=== PATIENT | female | born 1980 | race Hispanic/Latino ===

== ENCOUNTER 2017-06-21 17:12 | Emergency (ER) | payer MEDICARE ==
[2017-06-21 17:28] VITALS: BP 131/77
[2017-06-21 18:09] LABS: Basophils % (Auto) 0.2 % (0.0-1.8); Eosinophils # (Auto) 0.3 K/mm3 (0.0-0.4); Eosinophils % (Auto) 2.3 % (0.0-4.3); Hematocrit 45.5 % (30.3-42.9); Lymphocytes # (Auto) 3.6 K/mm3 (1.2-5.4); Mean Corpuscular HGB Conc 33 % (30-34); Mean Corpuscular Hemoglobin 29 pg (28-32); Mean Corpuscular Volume 87 fl (79-97); Monocytes # (Auto) 1.4 K/mm3 (0.0-0.8); Monocytes % (Auto) 10.5 % (0.0-7.3); Platelet Count 206 K/mm3 (140-440); Red Blood Count 5.23 M/mm3 (3.65-5.03); Red Cell Distribution Width 14.4 % (13.2-15.2)
[2017-06-21 18:19] LABS: BUN/Creatinine Ratio 8; Blood Urea Nitrogen 3 mg/dL (7-17); Hemolysis Index 33
[2017-06-21 18:38] LABS: Benzodiazepines Screen,Urine TNR; Cannabinoid Screen,Urine TNR; Cocaine Screen,Urine TNR; Methadone Screen,Urine TNR; Opiate Screen,Urine TNR
[2017-06-21 18:40] LABS: Amphetamine Screen,Urine TNR
--- NOTE | 2017-06-21 20:21 | Emergency Department Report ---
ED General Adult HPI - General Chief complaint: Psych Stated complaint: AMS Time Seen by Provider: 06/21/17 19:42 Source: patient Mode of arrival: Ambulatory Limitations: No Limitations - History of Present Illness Initial comments: Patient presents to emergency department with her mother and brother for manic behavior. They state that the patient has not had more distant sounds asleep over the last week. They're also concerned because the patient is not taking her medications. The patient has a history of bipolar and had a recent admission to [facility] 2 weeks ago. Said that the patient is very hyperactive at the moment which is limited to her to do dangerous pain such as when out in the middle of the street. 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, an financial reporting accountant, and some other field which she will not repeat -: Gradual, week(s) Radiation: non-radiation Severity scale (0 -10): 0 Improves with: none Worsens with: none Associated Symptoms: denies other symptoms Treatments Prior to Arrival: none - Related Data Home Medications Medication Instructions Recorded Confirmed Last Taken Atorvastatin 40 mg PO DAILY 06/21/17 06/21/17 Unknown Pantoprazole [Protonix] 40 mg PO DAILY 06/21/17 06/21/17 Unknown Topiramate [Topamax TAB] 50 mg PO QHS 06/21/17 06/21/17 Unknown hydrOXYzine 50 mg PO TID PRN 06/21/17 06/21/17 Unknown Allergies Allergy/AdvReac Type Severity Reaction Status Date / Time divalproex sodium Allergy Unknown Verified 06/21/17 17:28 [From Depakote] hydroxyzine [From Vistaril] Allergy Unknown Verified 06/21/17 17:28 risperidone Allergy Unknown Verified 06/21/17 17:35 sertraline [From Zoloft] Allergy Unknown Verified 06/21/17 17:28 ED Review of Systems ROS: Stated complaint: AMS Other details as noted in HPI Comment: All other systems reviewed and negative Constitutional: denies: chills, fever Eyes: denies: eye pain, eye discharge, vision change ENT: denies: ear pain, throat pain Respiratory: denies: cough, shortness of breath, wheezing Cardiovascular: denies: chest pain, palpitations Endocrine: no symptoms reported Gastrointestinal: denies: abdominal pain, nausea, diarrhea Genitourinary: denies: urgency, dysuria, discharge Musculoskeletal: denies: back pain, joint swelling, arthralgia Skin: denies: rash, lesions Neurological: denies: headache, weakness, paresthesias Psychiatric: anxiety, depression, other (manic) Hematological/Lymphatic: denies: easy bleeding, easy bruising ED Past Medical Hx - Past Medical History Hx GERD: Yes Hx Psychiatric Treatment: Yes (bipolar,schizophrenia) Additional medical history: elevated cholesterol - Surgical History Hx Cholecystectomy: Yes - Social History Smoking Status: Current Every Day Smoker Substance Use Type: None - Medications Home Medications: Home Medications Medication Instructions Recorded Confirmed Last Taken Type Atorvastatin 40 mg PO DAILY 06/21/17 06/21/17 Unknown History Pantoprazole [Protonix] 40 mg PO DAILY 06/21/17 06/21/17 Unknown History Topiramate [Topamax TAB] 50 mg PO QHS 06/21/17 06/21/17 Unknown History hydrOXYzine 50 mg PO TID PRN 06/21/17 06/21/17 Unknown History ED Physical Exam - General Limitations: No Limitations General appearance: alert, in no apparent distress - Head Head exam: Present: atraumatic, normocephalic - Eye Eye exam: Present: normal appearance - ENT ENT exam: Present: mucous membranes moist - Neck Neck exam: Present: normal inspection - Respiratory Respiratory exam: Present: normal lung sounds bilaterally. Absent: respiratory distress - Cardiovascular Cardiovascular Exam: Present: regular rate, normal rhythm. Absent: systolic murmur, diastolic murmur, rubs, gallop - GI/Abdominal GI/Abdominal exam: Present: soft, normal bowel sounds - Extremities Exam Extremities exam: Present: normal inspection - Back Exam Back exam: Present: normal inspection - Neurological Exam Neurological exam: Present: alert, oriented X3 - Psychiatric Psychiatric exam: Present: manic, other (tangential speech). Absent: homicidal ideation, suicidal ideation - Skin Skin exam: Present: warm, dry, intact, normal color. Absent: rash ED Course Vital Signs 06/21/17 17:23 Temperature 97 F L Pulse Rate 82 Respiratory 20 Rate Blood Pressure 131/77 O2 Sat by Pulse 99 Oximetry ED Medical Decision Making - Lab Data Result diagrams: 06/21/17 17:53 06/21/17 17:53 Lab Results 02/06/21/17 06/21/17 Range/Units 17:53 17:53 17:53 WBC (4.5-11.0) K/mm3 RBC (3.65-5.03) M/mm3 Hgb (10.1-14.3) gm/dl Hct (30.3-42.9) % MCV (79-97) fl MCH (28-32) pg MCHC (30-34) % RDW (13.2-15.2) % Plt Count (140-440) K/mm3 Lymph % (Auto) (13.4-35.0) % [place] % (Auto) (0.0-7.3) % Eos % (Auto) (0.0-4.3) % Baso % (Auto) (0.0-1.8) % Lymph # (1.2-5.4) K/mm3 [place] # (0.0-0.8) K/mm3 Eos # (0.0-0.4) K/mm3 Baso # (0.0-0.1) K/mm3 Seg Neutrophils % (40.0-70.0) % Seg Neutrophils # (1.8-7.7) K/mm3 Sodium 136 L (137-145) mmol/L Potassium 4.0 (3.6-5.0) mmol/L Chloride 94.7 L (98-107) mmol/L Carbon Dioxide 26 (22-30) mmol/L Anion Gap 19 mmol/L BUN 3 L (7-17) mg/dL Creatinine 0.4 L (0.7-1.2) mg/dL Estimated GFR > 60 ml/min BUN/Creatinine Ratio 8 % Glucose 89 (65-100) mg/dL Calcium 9.0 (8.4-10.2) mg/dL Salicylates < 0.3 L (2.8-20.0) mg/dL Urine Opiates Screen Urine Methadone Screen Acetaminophen 15.0 (10.0-30.0) ug/mL Ur Barbiturates Screen Ur Phencyclidine Scrn Ur Amphetamines Screen U Benzodiazepines Scrn Urine Cocaine Screen U Marijuana (THC) Screen Drugs of Abuse Note Plasma/Serum Alcohol (0-0.07) % 06/21/17 06/21/17 06/21/17 Range/Units 17:53 17:53 18:11 WBC 13.7 H (4.5-11.0) K/mm3 RBC 5.23 H (3.65-5.03) M/mm3 Hgb 15.0 H (10.1-14.3) gm/dl Hct 45.5 H (30.3-42.9) % MCV 87 (79-97) fl MCH 29 (28-32) pg MCHC 33 (30-34) % RDW 14.4 (13.2-15.2) % Plt Count 206 (140-440) K/mm3 Lymph % (Auto) 26.0 (13.4-35.0) % [place] % (Auto) 10.5 H (0.0-7.3) % Eos % (Auto) 2.3 (0.0-4.3) % Baso % (Auto) 0.2 (0.0-1.8) % Lymph # 3.6 (1.2-5.4) K/mm3 [place] # 1.4 H (0.0-0.8) K/mm3 Eos # 0.3 (0.0-0.4) K/mm3 Baso # 0.0 (0.0-0.1) K/mm3 Seg Neutrophils % 61.0 (40.0-70.0) % Seg Neutrophils # 8.4 H (1.8-7.7) K/mm3 Sodium (137-145) mmol/L Potassium (3.6-5.0) mmol/L Chloride (98-107) mmol/L Carbon Dioxide (22-30) mmol/L Anion Gap mmol/L BUN (7-17) mg/dL Creatinine (0.7-1.2) mg/dL Estimated GFR ml/min BUN/Creatinine Ratio % Glucose (65-100) mg/dL Calcium (8.4-10.2) mg/dL Salicylates (2.8-20.0) mg/dL Urine Opiates Screen TNR Urine Methadone Screen TNR Acetaminophen (10.0-30.0) ug/mL Ur Barbiturates Screen TNR Ur Phencyclidine Scrn Tmr Ur Amphetamines Screen TNR U Benzodiazepines Scrn TNR Urine Cocaine Screen TNR U Marijuana (THC) Screen TNR Drugs of Abuse Note TNR Plasma/Serum Alcohol < 0.01 (0-0.07) % - Medical Decision Making Patient was placed on a 1013 Patient has been accepted to the [facility] for further psychiatric evaluation A septic physician is Dr. Gutierrez time of acceptance is 1:31 AM Critical care attestation.: If time is entered above; I have spent that time in minutes in the direct care of this critically ill patient, excluding procedure time. ED Disposition Clinical Impression: Manic behavior Disposition: DC/TX-65 PSY HOSP/PSY UNIT Is pt being admited?: No Does the pt Need Aspirin: No Condition: Stable Referrals: HERBERT VILLA MD [Other] - 3-5 Days Time of Disposition: 01:34
== END 2017-06-22 02:36 ==
LOC: ED 17:12
DX: F30.9 Manic episode, unspecified (principal); K21.9 Gastro-esophageal reflux disease without esophagitis; F17.200 Nicotine dependence, unspecified, uncomplicated; Z90.49 Acquired absence of other specified parts of digestive tract
CPT/HCPCS: 36415; 80048; 80307; 85025; 99283; G0480; 80320